=== PATIENT | male | born 1930 | race Hispanic/Latino ===

== ENCOUNTER 2017-08-24 07:22 | Day surgery (SDC) | payer MEDICARE, BC ==
[2017-08-18 08:16] VITALS: BMI 24.5
[2017-08-24] MEDS ORDERED: Sodium Chloride 0.9% 1,000 ML IV SCH (08:45)
[2017-08-24] MEDS ORDERED: Propofol 10 mg/ml Inj (20 ML) ONE (08:45)
[2017-08-24] MEDS ORDERED: Etomidate 20 mg/10ml Inj IV ONE (09:17)
[2017-08-24 09:50] VITALS: PULSE 65
[2017-08-24 10:34] VITALS: BP 127/55; RESP 18; TEMP 98; O2SAT 99
== END 2017-08-24 11:05 | disposition home or self-care (01) ==
LOC: ENDO 07:22
PROVIDERS: ATTEND Specialist
DX: D12.5 Benign neoplasm of sigmoid colon (principal); D12.0 Benign neoplasm of cecum; K63.5 Polyp of colon; K57.30 Diverticulosis of large intestine without perforation or abscess without bleeding; K64.8 Other hemorrhoids; R19.5 Other fecal abnormalities
CPT/HCPCS: 45380; 45385; 88305; J2704; J7030 ×2; J7040

== ENCOUNTER 2018-03-01 06:10 | Day surgery (SDC) | payer MEDICARE, BC ==
[2018-02-23 08:55] VITALS: BMI 25.1
[2018-03-01] MEDS ORDERED: Lidocaine 2% Inj (20ml) ONE (06:58)
[2018-03-01] MEDS ORDERED: Iodixanol 320 MG/ML 100 ML BOTTLE IV ONE (06:59)
[2018-03-01] MEDS ORDERED: Iohexol 350mgl/ml 50 ML ONE (06:59)
[2018-03-01] MEDS ORDERED: Iodixanol 320 MG/ML 200 ML BOTTLE IV ONE (06:59)
[2018-03-01] MEDS ORDERED: Phenylephrine 10 mg/ml Inj ONE (07:00)
[2018-03-01 07:01] LABS: HEMOGLOBIN 15.3 g/dL (14.0-18.0); MEAN CELL VOLUME 88.6 fl (80.0-105.0); MEAN CORPUSCULAR HEMOGLOBIN 30.7 pg (25.0-35.0); MEAN CORPUSCULAR HGB CONC 34.6 g/dl (31.0-37.0); MEAN PLATELET VOLUME 8.3 fl (7.0-11.0); RBC 4.99 10^6/uL (3.5-6.1); RED CELL DISTRIBUTION WIDTH 12.8 % (11.5-14.5); WHITE BLOOD COUNT 8.8 10^3/uL (4.5-11.0)
[2018-03-01] MEDS ORDERED: Nitroglycerin 50mg in D5W 0 MG/0 ML BOTTLE IV ONE (07:01)
[2018-03-01 07:07] LABS: INR 1.02; PROTHROMBIN TIME 11.7 SECONDS (9.4-12.5)
[2018-03-01 07:11] LABS: CALCIUM 9.5 mg/dL (8.4-10.5)
[2018-03-01] MEDS ORDERED: Sodium Bicarbonate (8.4%) 50 Meq Syringe IVP ONE (07:47)
[2018-03-01] MEDS ORDERED: Midazolam 2 MG/2 ML VIAL ONE ×2 (09:15→09:21)
[2018-03-01 09:53] LABS: ALB/GLOB RATIO 1.4 (1.1-1.8); ALBUMIN 3.4 g/dL (3.0-4.8); CALCIUM 8.4 mg/dL (8.4-10.5)
[2018-03-01] MEDS ORDERED: Sodium Chloride 0.9% 1,000 ML IV SCH (10:00)
[2018-03-01 10:52] VITALS: RESP 20; TEMP 97
[2018-03-01 11:45] VITALS: O2SAT 99
--- NOTE | 2018-03-01 12:07 | CARDCATH ---
PROCEDURE DATE: 03/01/2018 HISTORY: The patient is an 87-year-old male who presents with an abnormal stress test. The patient suffers from history of a PTCA in the past, renal insufficiency, peripheral vascular disease as well as an abdominal aneurysm. Because of this, cardiac catheterization was recommended. The patient was aggressively hydrated with IV bicarb and normal saline prior to the procedure. The right femoral artery was cannulated with 6-Korean sheath. There were no complications. The initial creatinine was 2.2. After aggressive hydration, it was down to 1.9. I performed moderate sedation which included the presence of an independent trained observer that assisted in monitoring the patient's level of consciousness and physiologic status. After administration of Versed and fentanyl, my intra service time was 30 minutes. The findings on catheterization included a left ventricular measurement which showed an LVEDP of 20 mmHg after aggressive hydration. There was no gradient across the aortic valve. The right coronary artery which revealed multiple diffusely diseased lesions in the past was now occluded in its proximal portion. Collaterals were seen filling the distal RCA via the left circulation. The left main artery was unremarkable. The LAD and diagonal vessels revealed diffuse atherosclerosis with a patent kissing stents that were that were placed in his previous procedure. The circumflex artery and obtuse marginal branches revealed intimal irregularities without critical lesions. Manual compression was used to close the femoral artery site. A total of 15 mL of contrast was used. In summary, the procedure revealed patent stents in the LAD, patent stents in the diagonal vessel had an occluded RCA which was diffusely diseased in his previous study. The patient was aggressively hydrated to an LVEDP of 20 mmHg. His creatinine went from 2.2 to 1.9 at the end of the procedure after aggressive hydration. Given these findings, the patient's treatment will be continued medical. It would not benefit the patient to try to open up the total occlusion of the RCA which was minimally functional in the past. The contrast load will be too great for his renal insufficiency. We will continue with medical therapy. I have discussed this with the patient and in detail. Isaac Malloy MD
[2018-03-01 13:44] VITALS: BP 110/50; PULSE 50
== END 2018-03-01 17:01 | disposition home or self-care (01) ==
LOC: CATH 06:10
PROVIDERS: ATTEND Internal Medicine Cardiovascular Disease
DX: I25.10 Atherosclerotic heart disease of native coronary artery without angina pectoris (principal); I25.82 Chronic total occlusion of coronary artery; N28.9 Disorder of kidney and ureter, unspecified; I71.4 Abdominal aortic aneurysm, without rupture; I73.9 Peripheral vascular disease, unspecified; Z95.5 Presence of coronary angioplasty implant and graft
CPT/HCPCS: 36415; 80053; 80061; 85027; 85610; 85730; 86850; 86900; 93458; 99152; 99153; C1713; C1769; C1887; J1644; J2250; J3010; J7030; Q9966

== ENCOUNTER 2018-04-06 13:11 | Emergency (ER) | payer MEDICARE, BC ==
[2018-04-06 13:43] VITALS: RESP 18; TEMP 96.2; O2SAT 97
[2018-04-06 13:45] VITALS: BMI 20.7
[2018-04-06] MEDS ORDERED: Sodium Chloride 0.9% 1,000 ML IV STA (14:11)
[2018-04-06] MEDS ORDERED: guaiFENesin 200 mg/10 ml Syrup UD PO STA (14:14)
--- NOTE | 2018-04-06 14:26 | ED PDOC ---
Arrival/HPI - General Chief Complaint: Trauma Time Seen by Provider: 04/06/18 13:56 Historian: Patient, Partner - History of Present Illness Narrative History of Present Illness (Text): 04/06/18 14:33 87 year old male, with past medical history of CAD, [place], PVD, HTN, TIA, and GERD, presents to emergency department complaining of generalized weakness in the extremities and dizziness s/p stumble up stairs this morning. Patient's states he was unable to ambulate following the incident. states she did not recognize any physical trauma or bleeding. Patient also reports receiving treatment (steroids, cough meds) for the past week due to his lung congestion. Patient denies any fevers, chills, headache, chest pain, shortness of breath, cough, abdominal pain, nausea, vomiting, diarrhea, back pain, neck pain, or any other complaints. 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: Time/Duration: Other (this morning) Symptom Onset: Gradual Symptom Course: Unchanged Activities at Onset: Light Context: Home Past Medical History - Provider Review Nursing Documentation Reviewed: Yes - Tetanus Immunization Tetanus Immunization: Unknown - Cardiac Hx Hypertension: Yes Hx Pacemaker: No - Pulmonary Hx Respiratory Disorders: No - Neurological Hx Paralysis: No - HEENT Hx HEENT Disorder: No - Renal Hx Renal Disorder: No - Endocrine/Metabolic Hx Endocrine Disorders: No - Hematological/Oncological Hx Blood Transfusions: No Hx Blood Transfusion Reaction: No - Integumentary Hx Dermatological Disorder: No - Musculoskeletal/Rheumatological Hx Musculoskeletal Disorders: No - Gastrointestinal Hx Gastrointestinal Disorders: No - Genitourinary/Gynecological Hx Genitourinary Disorders: No - Psychiatric Hx Emotional Abuse: No Hx Physical Abuse: No Hx Substance Use: No - Surgical History Hx Cardiac Catheterization: Yes - Anesthesia Hx Anesthesia: Yes Hx Anesthesia Reactions: No Hx Malignant Hyperthermia: No - Suicidal Assessment Feels Threatened In Home Enviroment: No Family/Social History - Physician Review Nursing Documentation Reviewed: Yes Family/Social History: Unknown Family HX Smoking Status: Former Smoker Hx Alcohol Use: No (IN THE PAST) Hx Substance Use: No Hx Substance Use Treatment: No Allergies/Home Meds Allergies/Adverse Reactions: Allergies No Known Allergies Allergy (Verified 11/04/15 13:18) Home Medications: Home Meds Medication Instructions Recorded Confirmed amLODIPine [Norvasc] 10 mg PO QAM 07/21/14 03/01/18 ALPRAZolam [Xanax] 0.25 mg PO PRN PRN 10/28/15 03/01/18 Aspirin [Aspirin EC] 325 mg PO QAM 10/28/15 03/01/18 Folic Acid 5 mg PO DAILY 10/28/15 03/01/18 Pravastatin Sodium 40 mg PO QOTHERDAY 10/28/15 03/01/18 Tamsulosin [Flomax] 0.4 mg PO QAM 10/28/15 03/01/18 Clopidogrel [Plavix] 75 mg PO DAILY 12/01/16 03/01/18 Finasteride [Proscar] 5 mg PO DAILY 12/01/16 03/01/18 Metoprolol Tartrate [Lopressor] 12.5 mg PO BID 08/18/17 03/01/18 Linaclotide [Linzess] 72 mcg PO DAILY 08/24/17 03/01/18 Ergocalciferol (Vitamin D2) 2 tab PO Q2XW 02/23/18 03/01/18 [Vitamin D2] Febuxostat [Uloric] 80 mg PO DAILY 02/23/18 03/01/18 Ranolazine [Ranexa] 1,000 mg PO BID 02/23/18 03/01/18 Review of Systems - Review of Systems Constitutional: absent: Fevers Respiratory: absent: SOB, Cough, Wheezing Cardiovascular: absent: Chest Pain Gastrointestinal: absent: Abdominal Pain Genitourinary Male: absent: Frequency, Hematuria, Urinary Output Changes Musculoskeletal: Other (generalized weakness in extremities ). absent: Back Pain, Neck Pain Skin: absent: Rash Neurological: Dizziness. absent: Headache Physical Exam Vital Signs Reviewed: Yes Vital Signs Temp Pulse Resp BP Pulse Ox 04/06/18 13:15 96.2 F L 68 18 111/56 L 97 Temperature: Afebrile Blood Pressure: Normal Pulse: Regular Respiratory Rate: Normal Appearance: Positive for: Well-Appearing, Non-Toxic, Comfortable Pain Distress: None Mental Status: Positive for: Alert and Oriented X 3 - Systems Exam Head: Present: Atraumatic, Normocephalic Pupils: Present: PERRL Extroacular Muscles: Present: EOMI Conjunctiva: Present: Normal Mouth: Present: Dry (mucous membranes ) Neck: Present: Normal Range of Motion Respiratory/Chest: Present: Other (coarse rough sounds in posterior lung vines ). No: Respiratory Distress, Accessory Muscle Use, Wheezes, Rales, Rhonchi Cardiovascular: Present: Regular Rate and Rhythm, Normal S1, S2. No: Murmurs Abdomen: Present: Other (soft ). No: Tenderness, Distention, Peritoneal Signs Back: Present: Normal Inspection Upper Extremity: Present: Normal Inspection. No: Cyanosis, Edema Lower Extremity: Present: Normal Inspection. No: Edema Neurological: Present: GCS=15, CN II-XII Intact, Speech Normal Skin: Present: Warm, Dry, Normal Color. No: Rashes Psychiatric: Present: Alert, Oriented x 3, Normal Insight, Normal Concentration Medical Decision Making ED Course and Treatment: 04/06/18 14:23 Impression: 87 year old male presents to emergency department complaining of generalized weakness in extremities and dizziness s/p stumble this morning. Differential Diagnosis included but are not limited to: -- Pneumonia -- Influenza -- Bronchitis Plan: -- Labs -- Chest X-ray -- IV Fluids -- Urinalysis -- Reassess and disposition Prior Visits: Notes and results from previous visits were reviewed. Progress Notes: 04/06/18 16:09 Case discussed with , who instructs patient to continue home medication and follow up tomorrow. - Lab Interpretations Lab Results: 04/06/18 14:55 04/06/18 14:55 Lab Results 04/06/18 14:55: WBC 13.7 H D, RBC 4.00, Hgb 12.3 L D, Hct 37.0 L, MCV 92.5 D, MCH 30.8, MCHC 33.2, RDW 13.8, Plt Count 151, MPV 8.5, Gran % 89.0 H, Lymph % (Auto) 6.8 L, [place] % (Auto) 4.2, Eos % (Auto) 0.0 L, Baso % (Auto) 0.0, Gran # 12.16 H, Lymph # (Auto) 0.9 L, [place] # (Auto) 0.6, Eos # (Auto) 0.0, Baso # (Auto) 0.00 04/06/18 14:55: Sodium 139, Chloride 106, Potassium 5.5 H, Carbon Dioxide 24, Anion Gap 16, BUN 48 H, Creatinine 2.2 H, Est GFR ( Amer) 35, Est GFR (Non-Af Amer) 29, Random Glucose 173 H, Calcium 9.4, Magnesium 2.5 H, Total Bilirubin 0.5, AST 26, ALT 30, Alkaline Phosphatase 59, Lactate Dehydrogenase 476, Troponin I < 0.01 D, NT-Pro-B Natriuret Pep 659 H, Total Protein 6.7, Albumin 4.1, Globulin 2.6, Albumin/Globulin Ratio 1.6 04/06/18 14:55: pO2 58 H, VBG pH 7.31 L, VBG pCO2 48.0, VBG HCO3 24.2, VBG Total CO2 25.7, VBG O2 Sat (Calc) 93.7 H, VBG Base Excess -2.5 L, VBG Potassium 5.3 H, Sodium 137.0, Chloride 105.0, Glucose 182 H, Lactate 2.1, FiO2 21.0, Venous Blood Potassium 5.3 H I have reviewed the lab results: Yes - RAD Interpretation Narrative RAD Interpretations (Text): 04/06/18 16:39 Chest X-ray, reviewed by radiologist: IMPRESSION: No focal consolidation. Right paratracheal opacity suspected to reflect tortuous vasculature may slightly prominent by patient obliquity. Elevation of the right hemidiaphragm. Radiology Orders: 04/06/18 14:10 CHEST PORTABLE [RAD] Stat Ends Breakage Clerk: Radiologist - EKG Interpretation EKG Interpretation (Text): 04/06/18 16:45 EKG: Ordered, reviewed, and independently interpreted the EKG. Rate : 66 BPM Rhythm : NSR with fusion complexes Interpretation : No ST-segment elevations Interpreted by ED Physician: Yes Type: 12 lead EKG - Medication Orders Current Medication Orders: Sodium Chloride (Sodium Chloride 0.9%) 1,000 mls @ 999 mls/hr IV .Q1H1M STA Stop: 04/06/18 15:11 Discontinued Medications Guaifenesin (Robitussin) 200 mg PO STAT STA Stop: 04/06/18 14:15 Last Admin: 04/06/18 14:21 Dose: 200 mg - Scribe Statement The provider has reviewed the documentation as recorded by the Scribe Chava Alexander All medical record entries made by the Scribe were at my direction and personally dictated by me. I have reviewed the chart and agree that the record accurately reflects my personal performance of the history, physical exam, medical decision making, and the department course for this patient. I have also personally directed, reviewed, and agree with the discharge instructions and disposition. Disposition/Present on Arrival - Present on Arrival Any Indicators Present on Arrival: No History of DVT/PE: No History of Uncontrolled Diabetes: No Urinary Catheter: No History of Decub. Ulcer: No History Surgical Site Infection Following: None - Disposition Have Diagnosis and Disposition been Completed?: Yes Diagnosis: Sinusitis Disposition Time: 16:13 Patient Plan: Discharge Patient Problems: Current Active Problems Problem Status Onset Sinusitis Acute Condition: STABLE Discharge Instructions (ExitCare): Sinusitis, Adult (DC), Bacterial Upper Respiratory Infection, Adult (DC) Print Language: INDONESIAN Additional Instructions: All medical record entries made by the Scribe were at my direction and personally dictated by me. I have reviewed the chart and agree that the record accurately reflects my personal performance of the history, physical exam, medical decision making, and the department course for this patient. I have also personally directed, reviewed, and agree with the discharge instructions and disposition. Please see Dr. Cowart tomorrow for follow up Please continue taking your Augmentin, Medrol Dose Zhao, & Robitussin Referrals: Joe Cowart MD [Family Provider] - Follow up with primary Forms: [employer] (American)
[2018-04-06 15:00] LABS: GRAN # 12.16 (1.4-6.5); HEMOGLOBIN 12.3 g/dL (14.0-18.0); LYMPH # 0.9 (1.2-3.4); LYMPH % 6.8 % (22.0-35.0); MEAN CELL VOLUME 92.5 fl (80.0-105.0); MEAN CORPUSCULAR HEMOGLOBIN 30.8 pg (25.0-35.0); MEAN CORPUSCULAR HGB CONC 33.2 g/dl (31.0-37.0); MEAN PLATELET VOLUME 8.5 fl (7.0-11.0); MONO # 0.6 (0.1-0.6); MONO % 4.2 % (1.0-6.0); RED CELL DISTRIBUTION WIDTH 13.8 % (11.5-14.5); WHITE BLOOD COUNT 13.7 10^3/uL (4.5-11.0)
[2018-04-06 15:05] LABS: VENOUS BLOOD GAS BASE EXCESS -2.5 mmol/L (0.0-2.0); VENOUS BLOOD GAS PO2 58 mm/Hg (30-55); VENOUS BLOOD PH 7.31 (7.32-7.43)
[2018-04-06 15:25] LABS: ALB/GLOB RATIO 1.6 (1.1-1.8); ALBUMIN 4.1 g/dL (3.0-4.8); ALT/SGPT 30 U/L (7-56); AST/SGOT 26 U/L (17-59); BLOOD UREA NITROGEN 48 mg/dL (7-21); CALCIUM 9.4 mg/dL (8.4-10.5); GFR NON-AFRICAN AMERICAN 29
[2018-04-06 15:36] LABS: B-TYPE NATRIURETIC PEPTIDE 659 pg/mL (0-450); TROPONIN I < 0.01 ng/mL
--- NOTE | 2018-04-06 15:36 | RAD ---
HISTORY: cough COMPARISON: Chest x-ray performed 05/05/17 TECHNIQUE: Chest, one view. FINDINGS: Examination limited by habitus. LUNGS: Right paratracheal opacity suspected to reflect tortuous vasculature may be mildly prominent by patient obliquity. No focal consolidation. Please note that chest x-ray has limited sensitivity for the detection of pulmonary masses. PLEURA: No significant pleural effusion identified. No definite pneumothorax . CARDIOVASCULAR: Heart size appears top normal. Atherosclerotic calcifications of the aorta. OSSEOUS STRUCTURES: Degenerative changes. VISUALIZED UPPER ABDOMEN: Elevation of the right hemidiaphragm. OTHER FINDINGS: None. IMPRESSION: No focal consolidation. Right paratracheal opacity suspected to reflect tortuous vasculature may slightly prominent by patient obliquity. Elevation of the right hemidiaphragm.
[2018-04-06] MEDS ORDERED: Dextrose 50% SYRINGE Inj (50 ml) IVP STA (15:41)
[2018-04-06] MEDS ORDERED: Sodium Bicarbonate (8.4%) 50 Meq Syringe IVP ONE (15:41)
[2018-04-06] MEDS ORDERED: Albuterol 0.083% Inhal Sol (2.5 mg/3 mL) UD INH STA (15:41)
[2018-04-06] MEDS ORDERED: Insulin Regular 1 UNITS/0.01 ML ML IVP STA (15:41)
[2018-04-06] MEDS ORDERED: cefTRIAXone 1 gm 1 GM/100 ML BAG IVPB STA (15:51)
[2018-04-06] MEDS ORDERED: Albuterol-Ipratrop 3 mg / 0.5 (3 ml) UD IH STA (15:52)
[2018-04-06 16:09] LABS: URINE BILIRUBIN NEGATIVE (NEGATIVE); URINE BLOOD NEGATIVE (NEGATIVE); URINE GLUCOSE (UA) NEGATIVE (NEGATIVE); URINE LEUKOCYTE ESTERASE NEGATIVE Leu/uL (NEGATIVE); URINE PROTEIN NEGATIVE mg/dL (<30 mg/dL); URINE UROBILINOGEN 0.2 E.U./dL (<1 E.U./dL)
[2018-04-06 16:26] LABS: URINE APPEARANCE CLEAR (CLEAR); URINE COLOR YELLOW (YELLOW)
[2018-04-06 16:39] VITALS: BP 119/53; PULSE 70
--- NOTE | 2018-04-06 19:54 | CARD ---
APPROVED REPORT Date of service: 04/06/2018 EKG Measurement Heart [id number] <Conclusion> Sinus rhythm with sinus arrhythmia Inferior infarct, age undetermined Abnormal ECG
== END 2018-04-06 16:35 | disposition home or self-care (01) ==
LOC: ED 13:11
DX: J32.9 Chronic sinusitis, unspecified (principal); I10 Essential (primary) hypertension; I25.10 Atherosclerotic heart disease of native coronary artery without angina pectoris; Z86.73 Personal history of transient ischemic attack (TIA), and cerebral infarction without residual deficits; Z87.891 Personal history of nicotine dependence
CPT/HCPCS: 71045; 80053; 81003; 82803; 82948; 83615; 83735; 83880; 84484; 85025; 87804; 93005; 96361; 96365; 96375; 99285; J0696; J2930; J7030

== ENCOUNTER 2018-04-09 13:29 | Outpatient (CLI) | payer MEDICARE, BC | END 2018-04-09 13:30 | disposition home or self-care (01) | LOC: RAD 13:29 ==

== ENCOUNTER 2018-06-15 09:21 | Outpatient (CLI) | payer MEDICARE, BC | END 2018-06-15 09:22 | disposition home or self-care (01) | LOC: RAD 09:21 | DX: I71.4 Abdominal aortic aneurysm, without rupture (principal) ==

== ENCOUNTER 2018-07-14 11:10 | Inpatient (IN) | payer MEDICARE, BC ==
[2018-07-14 11:10] VITALS: BMI 20.7
--- NOTE | 2018-07-14 11:56 | ED PDOC ---
Arrival/HPI - History of Present Illness Narrative History of Present Illness (Text): 07/14/18 12:00 Patient is a 87 year old male with past medial history of CKD, CAD s/p stents, AAA, [place], HTN, GERD presenting with chief complaint of generalized weakness, nausea, and vomiting for the past three days. He admits to about three episodes of nonbloody, nonbilious vomiting everyday. Denies any sick contacts, recent travel, change in dietary habits. Denies fevers, chills, chest pain, shortness of breath, abdominal pain, dysuria. Time/Duration: > week Symptom Onset: Sudden Symptom Course: Unchanged Severity Level: Moderate <Pradeep Carrasco - Last Filed: 07/14/18 12:19> Past Medical History - Provider Review Nursing Documentation Reviewed: Yes - Infectious Disease Hx of Infectious Diseases: None - Tetanus Immunization Tetanus Immunization: Unknown - Cardiac Hx Cardiac Disorders: Yes Hx [place]: Yes Hx Hypertension: Yes Hx Pacemaker: No Other/Comment: cardiac stent - Pulmonary Hx Respiratory Disorders: No - Neurological Hx Paralysis: No - HEENT Hx HEENT Disorder: No - Renal Hx Renal Disorder: No - Endocrine/Metabolic Hx Endocrine Disorders: No - Hematological/Oncological Hx Blood Transfusions: No Hx Blood Transfusion Reaction: No - Integumentary Hx Dermatological Disorder: No - Musculoskeletal/Rheumatological Hx Musculoskeletal Disorders: No - Gastrointestinal Hx Gastrointestinal Disorders: No - Genitourinary/Gynecological Hx Genitourinary Disorders: No - Psychiatric Hx Emotional Abuse: No Hx Physical Abuse: No Hx Substance Use: No - Surgical History Hx Cardiac Catheterization: Yes - Anesthesia Hx Anesthesia: Yes Hx Anesthesia Reactions: No Hx Malignant Hyperthermia: No - Suicidal Assessment Feels Threatened In Home Enviroment: No <Pradeep Carrasco - Last Filed: 07/14/18 12:19> Family/Social History - Physician Review Nursing Documentation Reviewed: Yes Family/Social History: No Known Family HX Smoking Status: Former Smoker Hx Alcohol Use: No (IN THE PAST) Hx Substance Use: No Hx Substance Use Treatment: No <Pradeep Carrasco - Last Filed: 07/14/18 12:19> Allergies/Home Meds <Pradeep Carrasco - Last Filed: 07/14/18 12:19> <Josafat De La Garza - Last Filed: 07/14/18 16:31> Allergies/Adverse Reactions: Allergies No Known Allergies Allergy (Verified 08/10/16 13:18) Home Medications: Home Meds Medication Instructions Recorded Confirmed amLODIPine [Norvasc] 10 mg PO QAM 07/21/14 07/14/18 Aspirin [Aspirin EC] 325 mg PO QAM 10/28/15 07/14/18 Folic Acid 1 mg PO DAILY 10/28/15 07/14/18 Pravastatin Sodium 40 mg PO QOTHERDAY 10/28/15 07/14/18 Tamsulosin [Flomax] 0.4 mg PO QAM 10/28/15 07/14/18 Clopidogrel [Plavix] 75 mg PO DAILY 12/01/16 07/14/18 Finasteride [Proscar] 5 mg PO DAILY 12/01/16 07/14/18 Metoprolol Tartrate [Lopressor] 12.5 mg PO BID 08/18/17 07/14/18 Ergocalciferol (Vitamin D2) 2 tab PO Q2XW 02/23/18 07/14/18 [Vitamin D2] Review of Systems - Physician Review All systems were reviewed & negative as marked: Yes - Review of Systems Constitutional: Fatigue Respiratory: Normal Cardiovascular: Normal Gastrointestinal: Diarrhea, Nausea, Vomiting, Appetite Changes. absent: Abdom inal Pain, Constipation, Hematochezia Genitourinary Male: Normal Neurological: Normal <Pradeep Carrasco L - Last Filed: 07/14/18 12:19> Physical Exam Vital Signs Reviewed: Yes Vital Signs Temp Pulse Resp BP Pulse Ox 07/14/18 11:26 98.5 F 67 18 136/68 98 Temperature: Afebrile Blood Pressure: Normal Pulse: Regular Respiratory Rate: Normal Appearance: Positive for: Well-Appearing, Non-Toxic Pain Distress: None Mental Status: Positive for: Alert and Oriented X 3 - Systems Exam Head: Present: Atraumatic, Normocephalic Pupils: Present: PERRL Extroacular Muscles: Present: EOMI Conjunctiva: Present: Normal Mouth: Present: Dry Respiratory/Chest: Present: Clear to Auscultation, Good Air Exchange. No: Respiratory Distress, Accessory Muscle Use Cardiovascular: Present: Regular Rate and Rhythm, Normal S1, S2. No: Murmurs, Tachycardic Abdomen: Present: Normal Bowel Sounds. No: Tenderness, Distention, Rebound Lower Extremity: Present: Normal Inspection. No: Edema Neurological: Present: GCS=15, CN II-XII Intact Skin: Present: Warm, Dry, Normal Color Psychiatric: Present: Alert, Oriented x 3 <Pradeep Carrasco - Last Filed: 07/14/18 12:19> Vital Signs Temp Pulse Resp BP Pulse Ox 07/14/18 11:26 98.5 F 67 18 136/68 98 <Josafat De La Garza - Last Filed: 07/14/18 16:31> Medical Decision Making ED Course and Treatment: 07/14/18 12:18 Impression: 87 year old male with generalized weakness, nausea, vomiting Plan: - CBC, CMP - EKG, troponin - CXR - UA - IVF - Orthostatics - Reassess and disposition Prior Visits: Notes and results from previous visits were reviewed. Progress Notes: 07/14/18 12:20 - RAD Interpretation Radiology Orders: 07/14/18 11:41 CHEST PORTABLE [RAD] Stat <Pradeep Carrasco - Last Filed: 07/14/18 12:19> - RAD Interpretation Radiology Orders: 07/14/18 11:41 CHEST PORTABLE [RAD] Stat - EKG Interpretation EKG Interpretation (Text): 07/14/18 11:21 EKG shows Sinus Rhythm at 65 BPM normal QRS, normal axis, no acute ST/T wave abnormalities. Interpreted by me. Interpreted by ED Physician: Yes Type: 12 lead EKG - Medication Orders Current Medication Orders: Sodium Chloride (Sodium Chloride 0.9%) 1,000 mls @ 999 mls/hr IV .Q1H1M STA Stop: 07/14/18 12:58 <Josafat De La Garza - Last Filed: 07/14/18 16:31> Disposition/Present on Arrival - Present on Arrival History of DVT/PE: No History of Uncontrolled Diabetes: No Urinary Catheter: No History of Decub. Ulcer: No History Surgical Site Infection Following: None <Pradeep Carrasco - Last Filed: 07/14/18 12:19> - Present on Arrival Any Indicators Present on Arrival: No - Disposition Have Diagnosis and Disposition been Completed?: Yes Disposition Time: 16:31 Patient Plan: Admission <Josafat De La Garza - Last Filed: 07/14/18 16:31> - Disposition Diagnosis: Dehydration, Vomiting and diarrhea Disposition: HOSPITALIZED Condition: GUARDED
[2018-07-14] MEDS ORDERED: Sodium Chloride 0.9% 1,000 ML IV STA ×2 (11:58→15:01)
[2018-07-14 12:04] LABS: BASO # 0.01 K/mm3 (0.0-2.0); BASO % 0.1 % (0.0-3.0); EOS # 0.2 (0.0-0.7); EOS % 1.4 % (1.5-5.0); HEMOGLOBIN 14.8 g/dL (14.0-18.0); LYMPH # 1.3 (1.2-3.4); LYMPH % 11.3 % (22.0-35.0); MEAN CELL VOLUME 91.1 fl (80.0-105.0); MEAN CORPUSCULAR HEMOGLOBIN 31.2 pg (25.0-35.0); MEAN CORPUSCULAR HGB CONC 34.3 g/dl (31.0-37.0); MEAN PLATELET VOLUME 8.5 fl (7.0-11.0); MONO # 0.8 (0.1-0.6); MONO % 7.2 % (1.0-6.0); RBC 4.74 10^6/uL (3.5-6.1); RED CELL DISTRIBUTION WIDTH 12.8 % (11.5-14.5); WHITE BLOOD COUNT 11.4 10^3/uL (4.5-11.0)
--- NOTE | 2018-07-14 12:07 | RAD ---
Date of service: 07/14/2018 HISTORY: weakness COMPARISON: 04/06/2018 TECHNIQUE: 1 view obtained. FINDINGS: LUNGS: No active pulmonary disease. PLEURA: No significant pleural effusion identified, no pneumothorax apparent. CARDIOVASCULAR: No aortic atherosclerotic calcification present. Normal cardiac size. No pulmonary vascular congestion. OSSEOUS STRUCTURES: No significant abnormalities. VISUALIZED UPPER ABDOMEN: Normal. OTHER FINDINGS: None. IMPRESSION: No active disease.
[2018-07-14 12:22] LABS: ALB/GLOB RATIO 1.6 (1.1-1.8); ALT/SGPT 17 U/L (7-56); AST/SGOT 18 U/L (17-59); BLOOD UREA NITROGEN 43 mg/dL (7-21); GFR NON-AFRICAN AMERICAN 34
[2018-07-14 12:33] LABS: TROPONIN I < 0.01 ng/mL
[2018-07-14] MEDS ORDERED: Potassium & Sodium Phosphate PO ONE (15:18)
[2018-07-14] MEDS ORDERED: Magnesium Sulfate 1 gm in D5W 1 GM/100 ML BAG IVPB ONE (15:18)
[2018-07-14] MEDS ORDERED: ERGOCALCIFEROL PO SCH (15:45)
[2018-07-14] MEDS: Sodium Chloride 0.9% 1,000 ML IV SCH (16:28)
[2018-07-14 17:13] LABS: INR 1.17; PARTIAL THROMBOPLASTIN TIME 33.7 Seconds (26.9-38.3)
[2018-07-14 17:22] LABS: HDL CHOLESTEROL 34 mg/dL (29-60)
[2018-07-14 17:32] LABS: LDL CHOLESTEROL 61 mg/dL (0-129)
[2018-07-14 17:35] LABS: TROPONIN I < 0.01 ng/mL
[2018-07-14 18:54] LABS: PH,URINE 5.5 (4.7-8.0); URINE APPEARANCE CLEAR (CLEAR); URINE BILIRUBIN NEGATIVE (NEGATIVE); URINE BLOOD NEGATIVE (NEGATIVE); URINE COLOR YELLOW (YELLOW); URINE GLUCOSE (UA) NEGATIVE (NEGATIVE); URINE LEUKOCYTE ESTERASE NEGATIVE Leu/uL (NEGATIVE); URINE PROTEIN NEGATIVE mg/dL (<30 mg/dL); URINE UROBILINOGEN 0.2 E.U./dL (<1 E.U./dL)
[2018-07-14] MEDS: Levalbuterol 1.25 MG/3 ML Inhal Soln UD IH SCH (19:39)
[2018-07-14 19:52] LABS: BARBITURATES, UR NEGATIVE (NEGATIVE); BENZODIAZEPINES, UR NEGATIVE (NEGATIVE); OPIATES, UR NEGATIVE (NEGATIVE); PHENCYCLIDINE, UR NEGATIVE (NEGATIVE)
--- NOTE | 2018-07-14 21:24 | CARD ---
APPROVED REPORT Date of service: 07/14/2018 EKG Measurement Heart [id number] <Conclusion> Normal sinus rhythm Low voltage QRS Borderline ECG
--- NOTE | 2018-07-14 23:39 | HP ---
DATE OF EXAM: 07/14/2018 HISTORY OF PRESENT ILLNESS: The patient is an 87-year-old male who presented to the [facility] Emergency Room with 4-day complaints of nausea, vomiting, and diarrhea. The patient states that the symptoms started on Monday which was almost 3-4 days ago but the patient did not seek medical attention. The patient kept stating to his that I will be fine, I will be fine, but according to the patient's the patient's symptoms of nausea, vomiting and diarrhea started on Monday and continued intermittently during and Monday, but today the patient symptoms got worse and the patient came to the emergency room. REVIEW OF SYSTEMS: A 14 system review was positive for nausea, vomiting, diarrhea, and weakness. CODE STATUS: Full Code. LIVING WILL ADVANCE DIRECTIVE: None. HEIGHT: 5 feet 9 inches. WEIGHT: 176 pounds. BMI: 26. HOME MEDICATIONS: Flomax 0.4 mg daily, Pravachol 40 mg daily, Lopressor 12.5 mg once a day, folic acid 1 mg daily, Proscar 5 mg daily, Norvasc 10 mg daily, vitamin D 50,000 units weekly, Plavix 75 mg daily, and aspirin 81 mg p.o. daily SOCIAL HISTORY: Positive for social alcohol drinking. Denies smoking. Denies communicable disease. Denies transmissible disease. OCCUPATIONAL HISTORY: The patient is a retired gentleman. FAMILY HISTORY: Not available. PAST MEDICAL/SURGICAL HISTORY: History of coronary artery disease, history of ST elevation myocardial infarction, history of multiple angioplasty and stent placement, history of multiple myocardial infarction, history of angioplasty and stent placement, history of abdominal aortic aneurysm, history of peripheral vascular disease of the lower extremity, history of prostatic hypertrophy, history of hypertension, history of hyperlipidemia, history of multivessel coronary artery disease, history of hypovitaminosis D, history of prediabetes, history of anxiety disorder, history of unstable angina, hypertriglyceridemia, history of endovascular repair of the abdominal aortic aneurysm, history of questionable carotid stenosis, and history of syncope. History of chronic kidney disease stage III/IV. History of hyperuricemia in the past. PHYSICAL EXAMINATION: GENERAL: The patient was seen and evaluated and examined in stretcher #5. The patient is alert, awake, and responsive. The patient is in no discomfort at this time, no distress. VITAL SIGNS: T-max 98.5. Lying blood pressure 136/68, respirations 18, and O2 sat 98%. The patient's orthostatic blood pressure was done, initially the patient's orthostatic blood pressure was lying 132/67, heart rate 66, sitting blood pressure 112/65, standing blood pressure 89/52, heart rate 69. Repeat blood pressure after giving 2 liters of IV fluid, the patient's orthostatic blood pressure which was done almost at 03:00 p.m. blood pressure lying 130/70, heart rate 67, sitting blood pressure 122/61, heart rate 74, standing blood pressure 101/59 and heart rate 68. So, on both the orthostatic blood pressure the patient is dropping almost more than 20 mmHg a blood pressure despite IV fluid hydration. The patient is seen lying in the stretcher #5. HEENT: Head is normocephalic and atraumatic. Pinkish pale conjunctivae. Anicteric sclerae. No oropharyngeal lesion. No neck rigidity. Questionable soft carotid bruit. CHEST: Kyphosis. LUNGS: Shows no audible crackle, rales or wheezing. CARDIOVASCULAR: S1 and S2, regular rhythm. Questionable positive systolic murmur left sternal border, right second intercostal space, left second intercostal space. ABDOMEN: Soft. Positive bowel sounds. Positive soft midline pulsation noted. GENITALIA: Male. RECTAL: Deferred. EXTREMITIES: Shows no pitting edema, no calf tenderness, no Homans' sign. MUSCULOSKELETAL: Examination shows a body mass index of 26. NEUROLOGIC: The patient is alert, awake, and responsive. He is able to move upper and lower extremities without assistance. Gait examination is not tested. DIAGNOSTIC DATA: EKG shows sinus rhythm, no ST elevation or depression noted. WBC 11.4, hemoglobin/hematocrit 14.8/43.2, platelet 128, and granulocytes 80% segs. Sodium 138, potassium 5.0, chloride 107, CO2 of 21, anion gap 15, BUN 43, creatinine 1.9, GFR 34, glucose 117, calcium 9.0, phosphorus 2.4, magnesium 1.5. Troponin is negative. Chest x-ray shows no active pulmonary disease. EKG as mentioned above. The patient was seen and evaluated in the emergency room by the ER physician. The patient was given almost 2 liters of normal saline but the patient persisted to have orthostatic hypotensive changes with a drop of more than 20 mmHg of systolic pressure. The patient was also given magnesium sulfate rider and in the emergency room. IMPRESSION AND PLAN: 1. Questionable and possible gastroenteritis with symptoms of nausea, vomiting, and diarrhea. 2. Severe symptomatic orthostatic hypotension. with symptoms of nausea, vomiting, and diarrhea. 3. History of coronary artery disease. 4. History of myocardial infarction. 5. History of multiple coronary angioplasty. 6. History of multivessel coronary artery disease. 7. History of prostatic hypertrophy. 8. History of hyperlipidemia. 9. History of unstable angina. 10. History of hypertension. 11. Hypovitaminosis D. 12. Abdominal aortic aneurysm status post endovascular repair. 13. History of peripheral vascular disease. 14. Mild leukocytosis with granulocytosis. 15. Possible hemoconcentration. 16. Borderline hyperkalemia. 17. Chronic kidney disease stage IV. 18. Hypophosphatemia. 19. Hypomagnesemia. 20. Orthostatic hypotension, probably secondary to gastroenteritis. Plan at this time, the patient is to be placed on telemetry or remote telemetry observation. The patient will be continued on 0.9 normal saline at 100 ml an hour. The patient has been ordered orthostatic blood pressure. The patient's antihypertensive will be held at this time. The patient will be resumed on Flomax 0.4 mg daily, Pravachol 40 mg daily, folic acid 1 mg daily, Proscar 5 mg daily, Drisdol 50,000 units weekly, Plavix 75 mg daily, aspirin 325 mg or 81 mg p.o. daily. The patient has been ordered repeat labs. The patient has been ordered serial troponin. The patient has been ordered repeat EKG. The patient will be continued on both GI and DVT prophylaxis. The patient has been ordered thyroid profile, lipid panel, GlycoMark, hemoglobin A1c, and fructosamine. The patient will be ordered stool cultures, stool ova parasite, stool C. difficile. The patient will be continued on IV fluid hydration. The patient has been ordered antiemetics. The patient has been ordered diet if the patient's nausea and vomiting and diarrhea has subsided. The patient has been ordered thyroid profile. The patient's condition, diagnosis, need for hospitalization, need for further management, need for further admission to the observation and need for further diagnostic therapeutic intervention was discussed and explained to the patient and at length and all questions concerned answered which they acknowledge and understood. At this time, the patient is awaiting for a telemetry and remote telemetry bed. The patient's further management will dependent upon the patient's clinical condition, hemodynamic status and as per the patient response to therapeutic intervention as per the patient's diagnostic test results as per recommendation by all the physicians involved in the care of the patient. Dictated and electronically signed, not read. Joe Cowart MD
[2018-07-15] MEDS: Levalbuterol 1.25 MG/3 ML Inhal Soln UD IH SCH ×4 (01:05→19:42)
[2018-07-15 05:17] LABS: FRUCTOSAMINE 196 umol/L (190-270)
[2018-07-15 07:07] LABS: BASO # 0.02 K/mm3 (0.0-2.0); BASO % 0.3 % (0.0-3.0); EOS # 0.3 (0.0-0.7); EOS % 3.2 % (1.5-5.0); HEMOGLOBIN 12.2 g/dL (14.0-18.0); LYMPH # 1.5 (1.2-3.4); LYMPH % 19.7 % (22.0-35.0); MEAN CELL VOLUME 90.3 fl (80.0-105.0); MEAN CORPUSCULAR HEMOGLOBIN 30.4 pg (25.0-35.0); MEAN CORPUSCULAR HGB CONC 33.7 g/dl (31.0-37.0); MEAN PLATELET VOLUME 8.8 fl (7.0-11.0); MONO # 0.6 (0.1-0.6); MONO % 7.5 % (1.0-6.0); RBC 4.01 10^6/uL (3.5-6.1); RED CELL DISTRIBUTION WIDTH 12.8 % (11.5-14.5); WHITE BLOOD COUNT 7.7 10^3/uL (4.5-11.0)
[2018-07-15 07:30] LABS: ALB/GLOB RATIO 1.4 (1.1-1.8); ALBUMIN 2.9 g/dL (3.0-4.8); BILIRUBIN,DIRECT 0.2 mg/dL (0.0-0.4); URIC ACID 8.1 mg/dL (3.5-8.5)
--- NOTE | 2018-07-15 09:08 | CARD ---
APPROVED REPORT Date of service: 07/15/2018 EKG Measurement Heart [id number] <Conclusion> Normal sinus rhythm Low voltage QRS Nonspecific ST-T changes Abnormal Electrocardiogram
[2018-07-15] MEDS: Aspirin 325 mg EC Tablets PO SCH (09:10)
--- NOTE | 2018-07-15 09:37 | PN ---
DATE: 07/15/2018 SUBJECTIVE: The patient is in [facility] in [place]. The patient was admitted with dehydration, weakness, diarrhea, and vomiting. The patient has past history of coronary artery disease. The patient has history of atherosclerotic heart disease, multiple coronary stents. The patient has history of hyperlipidemia, prediabetic state, history of benign prostate hyperplasia, chronic lung disease. The patient was seen this morning. He has no direct complain. He says he feels better. PHYSICAL EXAMINATION: VITAL SIGNS: His pulse is 62, blood pressure 130/74, respirations 18, O2 saturation 98% on room air. HEENT: The patient's head is normocephalic. NECK: Thyroid is not enlarged. JVP is flat. Carotid pulses are present. HEART: Normal sinus rhythm. S1 and S2 present. LUNGS: Trachea central. Breath sounds vesicular. No adventitious sounds. ABDOMEN: Soft. Liver and spleen not palpable. No tenderness. . No masses. CENTRAL NERVOUS SYSTEM: The patient is conscious, rational and oriented. Answers all questions. He is able to move all 4 limbs, does have some transient tremors on left arm. MEDICATIONS: The patient's list of medications; the patient is on aspirin 325 mg daily, Flomax 0.4 mg daily. The patient is on folic acid, heparin prophylaxis, Lipitor 10 mg daily, Pepcid 40 mg daily, Plavix 75 mg daily, Proscar 5 mg daily and IV fluids for dehydration. LABORATORY DATA: The patient's blood work, the current BUN is 30, creatinine 1.6. The patient's sodium is 136. The patient had mild hypoglycemia, but the patient is without treatment. His cholesterol level is 105. We will continue current management and followup. Ryley Hammond MD
[2018-07-15 16:14] VITALS: O2SAT 96
[2018-07-15] MEDS: Sodium Chloride 0.9% 1,000 ML IV SCH (22:29)
[2018-07-15] MEDS: Magnesium Sulfate 2 gm/50 ml 2 GM/50 ML BAG IVPB SCH (22:44)
[2018-07-16] MEDS: Magnesium Sulfate 2 gm/50 ml 2 GM/50 ML BAG IVPB SCH (00:05)
[2018-07-16] MEDS: Levalbuterol 1.25 MG/3 ML Inhal Soln UD IH SCH ×2 (01:17→07:59)
[2018-07-16 07:28] LABS: BASO # 0.01 K/mm3 (0.0-2.0); BASO % 0.1 % (0.0-3.0); EOS # 0.2 (0.0-0.7); HEMOGLOBIN 12.7 g/dL (14.0-18.0); LYMPH # 1.6 (1.2-3.4); LYMPH % 21.6 % (22.0-35.0); MEAN CELL VOLUME 90.9 fl (80.0-105.0); MEAN CORPUSCULAR HEMOGLOBIN 30.3 pg (25.0-35.0); MEAN CORPUSCULAR HGB CONC 33.3 g/dl (31.0-37.0); MEAN PLATELET VOLUME 8.8 fl (7.0-11.0); MONO # 0.7 (0.1-0.6); MONO % 9.3 % (1.0-6.0); RBC 4.19 10^6/uL (3.5-6.1); WHITE BLOOD COUNT 7.3 10^3/uL (4.5-11.0)
[2018-07-16] MEDS ORDERED: Levalbuterol 0.63 MG/3 ML Inhal Soln UD IH SCH (08:29)
[2018-07-16 08:36] LABS: ALB/GLOB RATIO 1.4 (1.1-1.8); ALBUMIN 3.2 g/dL (3.0-4.8); BILIRUBIN,DIRECT 0.2 mg/dL (0.0-0.4); CALCIUM 8.1 mg/dL (8.4-10.5)
[2018-07-16 08:38] VITALS: BP 146/72; PULSE 72; RESP 20; TEMP 98.6
[2018-07-16] MEDS: Aspirin 325 mg EC Tablets PO SCH (09:48)
--- NOTE | 2018-07-16 21:20 | CP.PCM.DIS ---
Provider - Provider Date of Admission: 07/14/18 16:04 Attending physician: Joe Cowart MD Time Spent in preparation of Discharge (in minutes): 35 Hospital Course - Lab Results Lab Results: Most Recent Lab Values WBC 7.3 10^3/uL (4.5-11.0) 07/16/18 05:30 RBC 4.19 10^6/uL (3.5-6.1) 07/16/18 05:30 Hgb 12.7 g/dL (14.0-18.0) L 07/16/18 05:30 Hct 38.1 % (42.0-52.0) L 07/16/18 05:30 MCV 90.9 fl (80.0-105.0) 07/16/18 05:30 MCH 30.3 pg (25.0-35.0) 07/16/18 05:30 MCHC 33.3 g/dl (31.0-37.0) 07/16/18 05:30 RDW 13.0 % (11.5-14.5) 07/16/18 05:30 Plt Count 135 10^3/uL (120.0-450.0) 07/16/18 05:30 Manual Plt Count 172 K/mm3 (120-450) 07/16/18 05:30 MPV 8.8 fl (7.0-11.0) 07/16/18 05:30 Neut % (Auto) 66.0 % (50.0-68.0) 07/16/18 05:30 Lymph % (Auto) 21.6 % (22.0-35.0) L 07/16/18 05:30 Wise % (Auto) 9.3 % (1.0-6.0) H 07/16/18 05:30 Eos % (Auto) 3.0 % (1.5-5.0) 07/16/18 05:30 Baso % (Auto) 0.1 % (0.0-3.0) 07/16/18 05:30 Lymph # (Auto) 1.6 (1.2-3.4) 07/16/18 05:30 Wise # (Auto) 0.7 (0.1-0.6) H 07/16/18 05:30 Eos # (Auto) 0.2 (0.0-0.7) 07/16/18 05:30 Baso # (Auto) 0.01 K/mm3 (0.0-2.0) 07/16/18 05:30 Absolute Neuts (auto) 4.82 (1.4-6.5) 07/16/18 05:30 PT 13.0 SECONDS (9.4-12.5) H 07/14/18 16:50 INR 1.17 07/14/18 16:50 APTT 33.7 Seconds (26.9-38.3) 07/14/18 16:50 Sodium 140 mmol/L (132-148) 07/16/18 05:30 Potassium 3.8 mmol/L (3.6-5.0) 07/16/18 05:30 Chloride 110 mmol/L (98-107) H 07/16/18 05:30 Carbon Dioxide 22 mmol/L (21-33) 07/16/18 05:30 Anion Gap 12 (10-20) 07/16/18 05:30 BUN 22 mg/dL (7-21) H 07/16/18 05:30 Creatinine 1.6 mg/dl (0.8-1.5) H 07/16/18 05:30 Est GFR ( Amer) 50 07/16/18 05:30 Est GFR (Non-Af Amer) 41 07/16/18 05:30 Random Glucose 86 mg/dL (70-110) 07/16/18 05:30 Hemoglobin A1c 5.5 % (4.2-6.5) 07/14/18 16:50 Fructosamine 196 umol/L (190-270) 07/14/18 16:50 Uric Acid 8.1 mg/dL (3.5-8.5) 07/15/18 06:00 Calcium 8.1 mg/dL (8.4-10.5) L 07/16/18 05:30 Phosphorus 2.6 mg/dL (2.5-4.5) 07/15/18 06:00 Magnesium 2.8 mg/dL (1.7-2.2) H 07/16/18 05:30 Total Bilirubin 0.4 mg/dL (0.2-1.3) 07/16/18 05:30 Direct Bilirubin 0.2 mg/dL (0.0-0.4) 07/16/18 05:30 AST 20 U/L (17-59) 07/16/18 05:30 ALT 15 U/L (7-56) 07/16/18 05:30 Alkaline Phosphatase 56 U/L (38-126) 07/16/18 05:30 Troponin I < 0.01 ng/mL 07/14/18 22:50 Total Protein 5.4 g/dL (5.8-8.3) L 07/16/18 05:30 Albumin 3.2 g/dL (3.0-4.8) 07/16/18 05:30 Globulin 2.3 gm/dL 07/16/18 05:30 Albumin/Globulin Ratio 1.4 (1.1-1.8) 07/16/18 05:30 Triglycerides 100 mg/dL (35-160) 07/14/18 16:50 Cholesterol 105 mg/dL (130-200) L 07/14/18 16:50 LDL Cholesterol Direct 61 mg/dL (0-129) 07/14/18 16:50 HDL Cholesterol 34 mg/dL (29-60) 07/14/18 16:50 TSH 3rd Generation 1.32 mIU/mL (0.46-4.68) 07/14/18 16:50 Urine Color Yellow (YELLOW) 07/14/18 18:30 Urine Appearance Clear (CLEAR) 07/14/18 18:30 Urine pH 5.5 (4.7-8.0) 07/14/18 18:30 Ur Specific [place] >= 1.030 (1.005-1.035) 07/14/18 18:30 Urine Protein Negative mg/dL (<30 mg/dL) 07/14/18 18:30 Urine Glucose (UA) Negative mg/dL (NEGATIVE) 07/14/18 18:30 Urine Ketones Negative mg/dL (NEGATIVE) 07/14/18 18:30 Urine Blood Negative (NEGATIVE) 07/14/18 18:30 Urine Nitrate Negative (NEGATIVE) 07/14/18 18:30 Urine Bilirubin Negative (NEGATIVE) 07/14/18 18:30 Urine Urobilinogen 0.2 E.U./dL (<1 E.U./dL) 07/14/18 18:30 Ur Leukocyte Esterase Negative Alethea/uL (NEGATIVE) 07/14/18 18:30 Urine Opiates Screen Negative (NEGATIVE) 07/14/18 19:00 Urine Methadone Screen Negative (NEGATIVE) 07/14/18 19:00 Ur Barbiturates Screen Negative (NEGATIVE) 07/14/18 19:00 Ur Phencyclidine Scrn Negative (NEGATIVE) 07/14/18 19:00 Ur Amphetamines Screen Negative (NEGATIVE) 07/14/18 19:00 U Benzodiazepines Scrn Negative (NEGATIVE) 07/14/18 19:00 U Oth Cocaine Metabols Negative (NEGATIVE) 07/14/18 19:00 U Cannabinoids Screen Negative (NEGATIVE) 07/14/18 19:00 Alcohol, Quantitative < 10 mg/dL (0-10) 07/14/18 16:50 - Hospital Course Hospital Course: 87 year old male with past medial history of CKD, CAD s/p stents, AAA, [place], HTN, GERD presenting with chief complaint of generalized weakness, nausea, and vomiting for the past three days. He admits to about three episodes of nonbloody, nonbilious vomiting everyday. Orthostasis hypotension was noted in ED. Patient received IVF and electrolyte supplementations. Orthostatic VS were normal upon discharge and patient's symptoms resolved. He is discharged with instructions to follow-up with Dr. Cowart in 1 week. Discharge Exam - Head Exam Head Exam: ATRAUMATIC, NORMAL INSPECTION - Eye Exam Eye Exam: EOMI, Normal appearance - ENT Exam ENT Exam: Mucous Membranes Moist, Normal Exam - Neck Exam Neck exam: Full Rom, Normal Inspection - Respiratory Exam Respiratory Exam: NORMAL BREATHING PATTERN. absent: Wheezes, Respiratory Distress - Cardiovascular Exam Cardiovascular Exam: RRR, +S1, +S2 - GI/Abdominal Exam GI & Abdominal Exam: Soft. absent: Distended, Tenderness - Extremities Exam Extremities exam: full ROM, pedal pulses present - Neurological Exam Neurological exam: Alert, Oriented x3 - Skin Skin Exam: Normal Color, Warm Discharge Plan - Follow Up Plan Condition: GUARDED Disposition: HOME/ ROUTINE Instructions: Dehydration, Adult (DC), Nausea and Vomiting, Adult (DC) Additional Instructions: DISCHARGE HOME FOLLOW UP NEXT WEEK RESUME ALL HOME MEDICATIONS RETURN TO NEAREST ED IF SYMPTOMS RETURN/WORSEN. Referrals: Joe Cowart MD [Family Provider] -
--- NOTE | 2018-07-17 05:11 | DS ---
FINAL PROGRESS NOTE AND DISCHARGE SUMMARY LOCATION: The patient is in room 361, bed 1. SUBJECTIVE: The patient's orthostatic vital signs have not been done since admission. The last orthostatic vital signs which are available to me are from 07/14/2018. The patient was seen and examined in room 361, bed 1. Overnight nurse's notes were reviewed. No adverse events were noted, documented or called for. OBJECTIVE PHYSICAL EXAMINATION: VITAL SIGNS: The past 12- to 24-hour vital signs reviewed; T-max 98.3, heart rate 70 to 78. Telemetry normal sinus rhythm. Blood pressure 135/59, respirations 16, O2 sat 95% to 96%. The patient denies any nausea, vomiting, or diarrhea. The symptoms which the patient admitted with 4 days ago have resolved. HEENT: The patient's head examination; normocephalic, atraumatic. HEENT examination shows pinkish conjunctivae, anicteric sclerae. No oropharyngeal lesion. NECK: No neck rigidity. CHEST: Kyphosis. LUNGS: Show no audible crackle, rales or wheezing. CARDIOVASCULAR: S1, S2, regular rhythm. Positive systolic murmur left sternal border, right second intercostal space, left second costal space. ABDOMEN: Soft. Positive bowel sounds. GENITALIA: Male. RECTAL: Deferred. EXTREMITIES: Show trace swelling of the lower extremity, pitting edema. No calf tenderness or Homans' sign. NEUROLOGIC: The patient is alert, awake, responsive. Moves upper and lower extremities without assistance. Gait examination is not tested. Cranial nerves II to XII are intact but limited. MUSCULOSKELETAL: Examination as per the body mass index. DIAGNOSTICS: From 07/16/2018; WBC 7.3, hemoglobin/hematocrit 12.7, 38.1, and platelets 135. Sodium 140, potassium is 3.8, chloride 110, CO2 of 22, BUN 22, creatinine 1.6, glucose 86, calcium 8.5, magnesium 2.8. The patient's all the diagnostic data since admission was reviewed. FINAL IMPRESSION, PLAN AND DISCHARGE DIAGNOSES 1. Severe orthostatic hypotension secondary to severe gastroenteritis and severe symptomatic gastroenteritis with nausea, vomiting and diarrhea. 2. Leukocytosis. 3. Relative thrombocytopenia. 4. Granulocytosis. 5. Acute kidney injury with underlying chronic kidney disease stage 3 to 2. 6. Hypomagnesemia. 7. Severe symptomatic gastroenteritis leading to orthostatic hypotension. 8. Mild normocytic anemia. 9. History of coronary artery disease. 10. History of myocardial infarction. 11. History of multiple angioplasties and stent placements. 12. History of anxiety disorder. 13. History of hypertension. 14. History of hyperlipidemia. 15. History of peripheral vascular disease. 16. History of abdominal aortic aneurysm status post endovascular repair. PLAN: At this time if the patient's vital signs and orthostatics are stable, the patient will be considered for discharge today. The patient will resume all medications, which have been prescribed to the patient from the office and as per the electronic scribe. The patient's ambulatory order medication may not be accurate so the patient has been advised to take medications as per the medications prescribed through the last office visit, which are available via the electronic prescription system to the patient's pharmacy. The patient has been prescribed 90 days of medication. As mentioned above, if the patient is stable and orthostatics are stable, the patient will be considered for discharge. DISCHARGE MEDICATIONS: As per the medications prescribed to the patient from the last office visit. DISCHARGE FOLLOWUP: With Dr. Cowart within 1 week. DISCHARGE RESTRICTIONS: No alcohol. No smoking. No driving. Time spent in the entire discharge process more than 45 minutes. Dictated and electronically signed, not read. Joe Cowart MD
== END 2018-07-16 12:00 | disposition home or self-care (01) | DRG 641 ==
LOC: ED 11:10 → ERH 16:04 → 3RNO 18:17
PROVIDERS: ADMIT Internal Medicine; ATTEND Internal Medicine
PROC: 3E0F7GC Introduction of Other Therapeutic Substance into Respiratory Tract, Via Natural or Artificial Opening (ICD-10-PCS; principal; 2018-07-14)
DX: E86.0 Dehydration (principal); N17.9 Acute kidney failure, unspecified; N18.3 Chronic kidney disease, stage 3 (moderate); I95.1 Orthostatic hypotension; K52.9 Noninfective gastroenteritis and colitis, unspecified; N40.0 Benign prostatic hyperplasia without lower urinary tract symptoms; I73.9 Peripheral vascular disease, unspecified; I25.10 Atherosclerotic heart disease of native coronary artery without angina pectoris; F41.9 Anxiety disorder, unspecified; I12.9 Hypertensive chronic kidney disease with stage 1 through stage 4 chronic kidney disease, or unspecified chronic kidney disease; E55.9 Vitamin D deficiency, unspecified; R73.03 Prediabetes; E83.42 Hypomagnesemia; K21.9 Gastro-esophageal reflux disease without esophagitis; E78.5 Hyperlipidemia, unspecified; I25.2 Old myocardial infarction; Z95.5 Presence of coronary angioplasty implant and graft; Z79.02 Long term (current) use of antithrombotics/antiplatelets; Z79.82 Long term (current) use of aspirin; Z79.899 Other long term (current) drug therapy